=== PATIENT | male | born 1950 | race Caucasian/White ===

== ENCOUNTER 2017-01-06 14:58 | Inpatient (IN) | payer OTHER ==
[~2017-01-06] VITALS: Ht 175.3 cm; Wt 80.1 kg
[2017-01-06 17:01] LABS: MCH 30.4 PG (29.0-34.0); MCHC 35.3 G/DL (30.0-36.0); MEAN PLAT.VOLUME 11.1 uM^3 (9.0-12.4); PLATELET COUNT 149 K/uL (156-360); RBC DIS.WIDTH-CV 12.9 % (11.8-14.6); RBC DIS.WIDTH-SD 40.3 % (39-53); WHITE BLOOD COUNT 5.7 K/uL (4.1-10.2)
[2017-01-06 17:07] LABS: INTER. NORMALIZED RATIO 1.1; PROTHROMBIN TIME 12.1 SEC (10.2-12.9)
[2017-01-06 17:10] LABS: PTT 30.4 SEC (25-37)
[2017-01-06 17:18] LABS: CHLORIDE 104 mEq/L (99-109); POTASSIUM 3.9 mEq/L (3.7-5.4); SODIUM 139 mEq/L (136-147)
[2017-01-06 17:21] LABS: GLUCOSE 196 mg/dL (70-99)
[2017-01-06 17:22] LABS: ANION GAP 13 MEQ/L (2-14); TOTAL BILIRUBIN 0.9 mg/dL (0.0-1.0)
[2017-01-06 17:24] LABS: ALKALINE PHOSPHATASE 97 IU/L (3-129); GFR ESTIMATE (CALCULATED) > 59 mL/min/; SERUM ETHYL ALCOHOL < 10 mg/dL
[2017-01-06 17:26] LABS: DIRECT BILIRUBIN 0.3 mg/dL (0.0-0.3); UREA NITROGEN (BUN) 14 mg/dL (9-23)
[2017-01-06 18:14] LABS: LIPASE 1 U/L (1.0-51.0)
[2017-01-06 20:51] LABS: ADD MIUA? YES; BILIRUBIN NEGATIVE; BLOOD SMALL; COLOR YELLOW ((YELLOW)); GLUCOSE (STRIP) >=500; KETONES 5; LEUKOCYTES NEGATIVE; NITRITE NEGATIVE; PROTEIN (STRIP) 30; SPECIFIC GRAVITY 1.023 (1.000-1.030); UROBILINOGEN 0.2 MG/DL (0.2-1.0)
[2017-01-06 21:07] LABS: BACTERIA NONE SEEN /HPF; EPITHELIAL CELLS NONE SEEN /HPF; MUCUS TRACE /LPF; RED BLOOD CELLS 0-5 /HPF (0-5); UCUL ADDED? NO; WHITE BLOOD CELLS 0-5 /HPF (0-5)
[2017-01-06 23:09] LABS: HDL CHOLESTEROL 39 MG/DL (Desirable>=40); LDL CHOLESTEROL 143 mg/dL (Desirable<100); NON-HDL CHOLESTEROL 173 mg/dL (Desirable<160); TOTAL CHOLESTEROL 212 mg/dL (Desirable<200); TRIGLYCERIDES 150 MG/DL (Normal: <150)
[2017-01-07] VITALS (7 sets, daily range): BP systolic 122–189; BP diastolic 72–86
[2017-01-07 07:48] LABS: Estimated Average Glucose 209 mg/dL (70-123); HEMOGLOBIN A1c (GLYCOHEMOGLOB) 8.9 % HGB (Below 5.7)
[2017-01-07 12:06] LABS: POINT-OF-CARE METER ID UU13113717
[2017-01-07 17:27] LABS: POINT-OF-CARE METER ID UU13113717
[2017-01-07 21:27] LABS: POINT-OF-CARE METER ID UU14188625; POINT-OF-CARE USER ID BHSKTD
[2017-01-08 04:04] VITALS: BP 121/64
[2017-01-08 06:43] LABS: HEMATOCRIT 40.4 % (38.0-50.0); MCH 31.7 PG (29.0-34.0); MCHC 36.1 G/DL (30.0-36.0); MCV 87.6 FL (86-99); MEAN PLAT.VOLUME 10.6 uM^3 (9.0-12.4); PLATELET COUNT 148 K/uL (156-360); RBC DIS.WIDTH-CV 13.3 % (11.8-14.6); RBC DIS.WIDTH-SD 42.4 % (39-53); RED BLOOD COUNT 4.61 M/uL (4.00-5.50); WHITE BLOOD COUNT 4.5 K/uL (4.1-10.2)
[2017-01-08 07:07] LABS: ANION GAP 6 MEQ/L (2-14); CHLORIDE 107 MEQ/L (99-109); GFR ESTIMATE (CALCULATED) > 59 mL/min/; GLUCOSE 178 mg/dL (70-99); POTASSIUM 4.4 MEQ/L (3.7-5.4); SAMPLE HEMOLYSIS CHECK 0; SAMPLE ICTERIC CHECK 0; SAMPLE LIPEMIA CHECK 0; SODIUM 141 MEQ/L (136-147); UREA NITROGEN (BUN) 17 mg/dL (9-23)
[2017-01-08 08:00] VITALS: BP 171/85
[2017-01-08 08:14] LABS: POINT-OF-CARE METER ID UU14188625
[2017-01-08] MEDS ORDERED: LISINOPRIL20 MG PO (10:25)
[2017-01-08] MEDS ORDERED: ASPIR-LOW81 MG PO (10:25)
[2017-01-08] MEDS ORDERED: METFORMIN HCL500 MG PO (10:25)
[2017-01-08] MEDS ORDERED: ATORVASTATIN CA40 MG PO (10:25)
[2017-01-08 11:58] VITALS: BP 161/81
== END 2017-01-08 12:56 | DRG 66 ==
LOC: EME 14:58 → EDOF 22:13 → 5SOUTH 22:13 → ENRESERV 22:25 → EDOF 01-07 00:42 → 5SOUTH 01-07 00:45
PROVIDERS: Emergency Medicine; Hospitalist; Physician Assistant Medical
DX: I63.9 Cerebral infarction, unspecified (principal); E11.65 Type 2 diabetes mellitus with hyperglycemia; D69.6 Thrombocytopenia, unspecified; J44.9 Chronic obstructive pulmonary disease, unspecified; I10 Essential (primary) hypertension; E78.5 Hyperlipidemia, unspecified; F17.210 Nicotine dependence, cigarettes, uncomplicated; Z83.3 Family history of diabetes mellitus; Z82.49 Family history of ischemic heart disease and other diseases of the circulatory system
CPT/HCPCS: 70450; 70551; 71020; 80048; 80061; 80076; 81003; 82948; 83036; 83605; 83690; 85027; 85610; 85730; 93005; 93306; 93880; 99202; 99281; 99285; G0480; J1644; J1815